=== PATIENT | female | born 1930 | race Caucasian/White ===

== ENCOUNTER → 2016-12-01 | Outpatient (CLI) | payer OTHER, MEDICARE ==
[2010-11-07 13:47] VITALS: BP 131/57
== END ==
LOC: MMPC 09:00
PROVIDERS: ATTEND Family Medicine
DX: E78.5 Hyperlipidemia, unspecified (principal); E03.9 Hypothyroidism, unspecified; D22.62 Melanocytic nevi of left upper limb, including shoulder; D22.71 Melanocytic nevi of right lower limb, including hip; Z78.0 Asymptomatic menopausal state
CPT/HCPCS: 99214; G0463

== ENCOUNTER → 2016-12-08 | Outpatient (CLI) | payer OTHER, MEDICARE ==
[2010-11-07 13:47] VITALS: BP 131/57
[2016-12-08 08:19] LABS: HEMATOCRIT 45.1 % (37.0-47.0); HEMOGLOBIN 15.3 g/dL (12.0-16.0); MEAN CORPUSCULAR HEMOGLOBIN 30.4 PG (27-31); MEAN CORPUSCULAR HGB CONC 33.9 g/dL (33-37); MEAN CORPUSCULAR VOLUME 89.5 FL (81-99); MEAN PLATELET VOLUME 10.5 FL (7.4-12.2); RED BLOOD COUNT 5.04 10^6/uL (4.20-5.40)
[2016-12-08 08:26] LABS: BUN/CREATININE RATIO 23.75 (6-20); CALCIUM 9.4 mg/dL (8.7-10.7); CHOL/HDL RATIO 2.63 RATIO (0-4.0); LDL CHOLESTEROL,CALCULATED 87.4 mg/dL; SERUM ALBUMIN 3.9 g/dL (3.5-4.8)
[2016-12-08 09:00] LABS: FREE T4 (FREE THYROXINE) 0.96 ng/dL (0.93-1.71)
--- NOTE | 2016-12-08 10:15 | DI ---
CT BONE DENSITOMETRY OF THE SPINE AND HIP, 12/08/2016 8:02 AM : Clinical History: Asymptomatic post menopausal patient. Screening. Previous Exam: None at this facility. 3D Quantitative CT (QCT) Bone Mineral Densitometry: The [place] scans are normal. Low dose scans are obtained of the lumbar spine and sampling is obtaine d through the midbodies of L1 and L2. The average volumetric bone mineral density (BMD) of the lumbar spine is 57.3 mg/cm3. This value corresponds to a volumetric T-score of -4.3 and Z-score of -0.2 as assessed by this BMD software. Volumetric 3D QCT and areal DEXA T-scores and Z-scores are not directl y equivalent. Using the [employer]'s (ACR) volumetric QCT trabecular spine BMD con version table that is closely equivalent to the areal WHO diagnostic categories, this patient falls i nto the category of osteoporosis CT X-Ray Absorptiometry (CTXA) Hip Bone Mineral Densitometry: Low dose scans are obtained through the hips for assessment of bone mineral density (BMD) and T-score s and Z-scores of the left hip. Total hip BMD: 0.602 mg/cm2 T-score: -2.76 Z-score: Femoral neck BMD: 0.558 mg/cm2 T-score: -2.1 Z-score: Note: T-scores of the spine and hip exhibit discordant readings approximately 40% of the time in eval uated patients. Changes in BMD determined either by volumetric QCT or areal DEXA are more reliable in assessment of change in a patient's BMD status rather than changes in T-scores. The CTXA hip CT bone mineral density measurements and the resultant T-scores and Z-scores are exact hip DEXA scan equival ents. The femoral neck T-score can be used in the WHO's FRAX program for assessing an untreated patie nt's 10 year fracture risk. 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
== END ==
LOC: CT 07:56
PROVIDERS: ATTEND Nurse Practitioner Family
DX: E78.5 Hyperlipidemia, unspecified (principal); E03.9 Hypothyroidism, unspecified; Z78.0 Asymptomatic menopausal state; Z13.820 Encounter for screening for osteoporosis; D22.61 Melanocytic nevi of right upper limb, including shoulder
CPT/HCPCS: 11400 ×2; 36415; 77078; 80053; 80061; 84439; 84443; 85027; G0463

== ENCOUNTER → 2017-02-19 | Outpatient (CLI) | payer OTHER, MEDICARE ==
[2010-11-07 13:47] VITALS: BP 131/57
== END ==
LOC: MMPC 09:00
PROVIDERS: ATTEND Nurse Practitioner Family
DX: R21 Rash and other nonspecific skin eruption (principal); L29.8 Other pruritus; R60.0 Localized edema
CPT/HCPCS: 99213; G0463